=== PATIENT | male | born 1935 | race Caucasian/White ===

== ENCOUNTER 2020-06-27 01:48 | Observation (INO) | payer MEDICARE, BC ==
[2020-06-27] VITALS (19 sets, daily range): BP systolic 114–140; BP diastolic 64–92; PULSE 69–95; TEMP 97.5–98.3
[~2020-06-27] VITALS: Ht 170.2 cm; Wt 88.5 kg
--- NOTE | 2020-06-27 03:19 | NUR ---
Received report from Kang Mcleod RN, Lay.
--- NOTE | 2020-06-27 03:19 | NUR ---
Patient arrives to ICU room 8 via EMS stretcher. Patient is alert and oriented, and ambulates to ICU bed with standby assistance. Initial vitals within normal limits. Patient denies any pain or discomfort. He arrives with two 22g peripheral IVs; one to each AC. Heparin is infusing at 1000 units/hour to the left AC. Nitro is infusing at 2.5 mcg/min to the right AC. Patient is 97% on room air; denies feeling short of breath. PETER Aleman, notified of patient's arrival. Received orders to continue nitro and heparin drips. Patient's belongings include a pair of glasses, brown boots, street clothes, and a cell phone. He denies having a wallet, dentures, partials, plates, hearing aids, and any jewelry. Patient also has with him a small bottle of sublingual nitroglycerine, which is given to JACOB Antonio, at shift change, to give to pharmacy. No further needs noted at this time.
[2020-06-27] MEDS ORDERED: NITROSTAT0.4 MG/TAB SL (04:19)
[2020-06-27] MEDS ORDERED: ZYLOPRIM 300MG300 MG PO (04:20)
[2020-06-27] MEDS ORDERED: FLOMAX 0.40.4 MG/CAP PO (04:21)
[2020-06-27] MEDS ORDERED: LOPRESSOR 225 MG/TAB PO (04:22)
[2020-06-27] MEDS ORDERED: SYNTHROID 0.0.025 MG PO (04:26)
[2020-06-27 04:58] LABS: BASO % 0.3 % (0.0-2.0); EOS # 0.1 (0.0-0.7); EOS % 0.6 % (0-4.0); GRAN # 5.5 (1.4-6.5); GRAN % 58.2 % (42.2-75.2); HEMOGLOBIN 10.7 g/dl (13.5-18.0); LYMPH % 31.3 % (20.0-51.0); MEAN CELL VOLUME 103 fl (80.0-100.0); MEAN CORPUSCULAR HEMOGLOBIN 34 pg (27.0-31.0); MEAN CORPUSCULAR HGB CONC 33 g/dl (33.0-37.0); MEAN PLATELET VOLUME 10.1 fl (7.4-10.4); MONO # 0.9 (0.1-0.6); MONO % 9.3 % (1.7-9.3); PLATELET COUNT 182 K/mm3 (130-400); RED BLOOD COUNT 3.15 M/mm3 (4.20-5.60); REDCELL DISTRIBUTION WIDTH-CV 13.5 % (11.5-14.5)
[2020-06-27 05:01] LABS: HEMATOCRIT 32.4 % (42.0-52.0)
[2020-06-27 05:13] LABS: BILIRUBIN,TOTAL 0.6 mg/dL (0.0-1.0); CALCIUM 9.5 mg/dL (8.4-10.2); CHOLESTEROL RISK RATIO 4.6; CREATININE, serum 3.38 (0.66-1.25); MAGNESIUM 2.3 mg/dL (1.6-2.3); POTASSIUM 3.8 mmol/L (3.4-5.0); TOTAL PROTEIN 6.9 gm/dL (6.4-8.2)
[2020-06-27 05:15] LABS: INR 1.2 (0.8-3.0); PROTHROMBIN TIME 13.6 SECONDS (9.7-12.8)
[2020-06-27] MEDS ORDERED: NORVASC2.5 MG PO (05:17)
[2020-06-27 05:27] LABS: TROPONIN-I 0.967 ng/mL (0.000-0.035)
[2020-06-27 05:34] LABS: PARTIAL THROMBOPLASTIN TIME 133.3 SECONDS (26.0-37.0)
--- NOTE | 2020-06-27 07:30 | NUR ---
Report given to JACOB Antonio.
--- NOTE | 2020-06-27 07:42 | NUR ---
polytechnic registrar at bedside.
--- NOTE | 2020-06-27 08:05 | NUR ---
Notified Dr. Mead of consult on pt. requested to contacted Giuliana. Voicemail left with Giuliana and return phone number given. Attempted to contacted Dr. Monteiro for consult. Phone call dropped during call and unable to reach or leave voicemail with second call at this time.
--- NOTE | 2020-06-27 09:07 | NUR ---
RECEIVED REPORT FROM JACOB UMANA. ASSUMED CARE OF PT AT THIS TIME.
--- NOTE | 2020-06-27 09:15 | NUR ---
JACOB Giordano at bedside speaking with ptMaria Del Carmen
--- NOTE | 2020-06-27 09:51 | NUR ---
SW met with the patient to discuss discharge plan. The patient [place] north of [place] with his , Kristine (ph#[phone]). He reports independence with ADLs and has a walker available, if needed. The patient's PCP is Dr. Esau Irwin and he receives his medications from [facility]. He reports no difficulties obtaining his meds. The patient does not have a DPOA-HC in EMR, but he states that he thinks he may have one completed. He states that he does not know where it is at though. He would have designated his or daughter, Zeinab (ph#[phone]). The patient plans to return home with his upon discharge. SW attempted to contact the patient's to review d/c plan. SW left her a voicemail. SW then contacted and updated the patient's daughter, Zeinab. Zeinab reports no concerns with the patient returning home upon discharge. SW to follow as needed.
--- NOTE | 2020-06-27 11:30 | NUR ---
NOTIFIED DR. DOHERTY OF PT'S TROPONIN LEVEL OF 1.080.
--- NOTE | 2020-06-27 14:35 | NUR ---
CONTACTED DR. ROSALES OFFICE TO REQUEST PT PROCEDURE HISTORY AND PROGRESS NOTES. INFORMATION TO BE FAXED TO ICU.
--- NOTE | 2020-06-27 16:15 | NUR ---
PT TO REGULATORY COMPLIANCE MANAGER AT THIS TIME VIA CART WITH JACOB KIM.
--- NOTE | 2020-06-27 16:43 | NUR ---
SEE MERGE DOCUMENTATION FOR MEDICATION ADMINISTRATION TIMES AND INTRA/POST PROCEDURE SEDATION ASSESSMENTS.
[2020-06-27 16:56] LABS: HEMOGLOBIN 10.7 g/dl (13.5-18.0); MEAN CELL VOLUME 102 fl (80.0-100.0); MEAN CORPUSCULAR HEMOGLOBIN 35 pg (27.0-31.0); MEAN CORPUSCULAR HGB CONC 34 g/dl (33.0-37.0); MEAN PLATELET VOLUME 10.3 fl (7.4-10.4); PLATELET COUNT 182 K/mm3 (130-400); REDCELL DISTRIBUTION WIDTH-CV 13.6 % (11.5-14.5)
[2020-06-27 16:57] LABS: HEMATOCRIT 31.6 % (42.0-52.0)
[2020-06-27 17:08] LABS: CALCIUM 9.3 mg/dL (8.4-10.2); CREATININE, serum 3.04 (0.66-1.25); POTASSIUM 4.2 mmol/L (3.4-5.0)
[2020-06-27 17:09] LABS: INR 1.2 (0.8-3.0); PROTHROMBIN TIME 13.6 SECONDS (9.7-12.8)
[2020-06-27 17:12] LABS: PARTIAL THROMBOPLASTIN TIME 56.9 SECONDS (26.0-37.0)
--- NOTE | 2020-06-27 17:30 | NUR ---
PT RETURN FROM SIGNAL MAINTAINER. RECEIVED REPORT FROM JACOB KIM. VS WNL. HEPARIN CONTINUES TO RUN AT 7ML/HR, NITRO GTT AT 3ML/HR. PT ALERT/ORIENTED X3. PT REMAINS IN SUPINE POSITION. FEMORAL SHEATH IN PLACE TO RIGHT GROIN. DRESSING INTACT. NO ACTIVE BLEEDING NOTED. PRESSURE BAG AT 250MMHG. WILL CONTINUE TO MONITOR.
--- NOTE | 2020-06-27 18:15 | NUR ---
PT EXPRESSING CONCERN WITH TRANSFER TO [facility]. NOTIFIED DR. DOHERTY. DR. DOHERTY TO BEDSIDE TO SPEAK WITH PT.
--- NOTE | 2020-06-27 19:15 | NUR ---
Received report from JACOB Antonio. Patient resting quietly in bed. All vitals within normal limits. Patient denies any pain or discomfort. All pumps and lines verified at bedside. Right groin access site is clean, dry, and intact, soft, and without bruising or hematoma formation. All pulses palpable. No further needs noted at this time.
--- NOTE | 2020-06-27 20:48 | NUR ---
Report called to receiving nurseMary.
--- NOTE | 2020-06-27 22:42 | NUR ---
Patient departs for [facility] with EMS transport at this time. All patient belongings are sent with patient. Final vital stats within normal limits. Patient denies any pain or discomfort. No further needs noted.
== END 2020-06-27 22:42 | disposition critical access hospital (66) ==
LOC: ICU 01:48
PROVIDERS: Internal Medicine Cardiovascular Disease; Nurse Practitioner Family; ADMIT Hospitalist
DX: I25.110 Atherosclerotic heart disease of native coronary artery with unstable angina pectoris (principal); E78.5 Hyperlipidemia, unspecified; N40.0 Benign prostatic hyperplasia without lower urinary tract symptoms; E03.9 Hypothyroidism, unspecified; I12.9 Hypertensive chronic kidney disease with stage 1 through stage 4 chronic kidney disease, or unspecified chronic kidney disease; N18.4 Chronic kidney disease, stage 4 (severe); I25.2 Old myocardial infarction; D63.1 Anemia in chronic kidney disease; Z87.891 Personal history of nicotine dependence; I08.1 Rheumatic disorders of both mitral and tricuspid valves
CPT/HCPCS: 99223-AI; 99238; G0378; G0379; J1644; J1940; J2250; J3010; J7030; Q9967

== ENCOUNTER 2020-12-28 06:24 | Inpatient (IN) | payer MEDICARE, BC ==
[~2020-12-28] VITALS: Ht 170.2 cm; Wt 80.8 kg
[2020-12-28] VITALS (78 sets, daily range): BP systolic 104–117; BP diastolic 60–88; PULSE 72–93; TEMP 97.1; O2SAT 69–97
[~2020-12-28 06:24] MED LIST: FLOMAX 0.40.4 MG/CAP PO; LOPRESSOR 225 MG/TAB PO; NITROSTAT0.4 MG/TAB SL; NORVASC2.5 MG PO; SYNTHROID 0.0.025 MG PO; ZYLOPRIM 300MG300 MG PO
--- NOTE | 2020-12-28 09:15 | NUR ---
PATIENT ARRIVED VIA EMS. PATIENT C/O NAUSEA BUT REPORTS HIS CHEST PAIN IS BETTER AFTER GETTING IV FENTANYL & MORPHINE AT [facility]. PATIENT IS PALE. EMS REPORTED PATIENT WAS TRANSFERED ON NITRO GTT AT 5MCG/MIN, WAS HAVING CHEST PAIN & NAUSEA AT [facility], AND ELEVATED TROP. VITALS TAKEN ON ADMIT NOTED HYPOTENSION. ALL OTHER VSS. CALLED BY FINE DINING SERVER WITH NO ANSWER. AWAITING ORDERS.
--- NOTE | 2020-12-28 09:20 | NUR ---
ATTEMPTED X2 TO CALL BATTERY CONTAINER TESTER ALUMINUM REGUARDING PATIENT ADMITTED TO FLOOR ON NITRO GTT AND CRITICAL TROPONIN. NO ANSWER
--- NOTE | 2020-12-28 09:40 | NUR ---
CALLED AND DISCUSSED PATIENT STATUS UPDATE. PATIENT ARRIVED ON NITRO GTT AND WITH A REPORTED TROPONIN OF 1.442. WAS NOT AWARE OF THIS AND GAVE ORDERS TO TRANSFER PATIENT TO THE ICU. RELAY CHECKER NOTIFIED.
--- NOTE | 2020-12-28 10:00 | NUR ---
ICU PROVIDER NOTIFIED SURGICAL NURSE, ICU STAFFING ISSUES DOESN'T ALLOW FOR TRANSFER. ICU PROVIDER SAID HE IS CANCELING ICU TX. HOUSE NOTIFIED BUT DIDN'T ANSWER. NO FLOOR ORDERS AT THIS TIME. PATIENT STILL DOESN'T HAVE NITRO GTT INFUSING AND NO CARDIAC MONITORING IS INPLACE. NURSING TRYING TO GET ORDERS.
--- NOTE | 2020-12-28 10:06 | NUR ---
SECRET CODE EXPERT NOW ANSWERED, REPORTS ICU TRANSFER IS NOT CANCELED AND THEY ARE WORKING ON IT. NURSING ASKED FOR ORDERS FOR TELE TILL TRANSFER IS COMPLETED.
--- NOTE | 2020-12-28 10:25 | NUR ---
ICU NURSE AT BEDSIDE TO SET UP NITRO GTT, WHICH IS NOT STOCKING IN THE SURG/MED PYXIS. ICU NURSE TO BACK DOWN TO ICU TO GET NITRO GTT. LAST B/P IS 109/68. PATIENT STILL C/O SHARP PAINS IN HIS SHOULDERS THAT ARE TOLERABLE AND MILD NAUSEA. STILL WAITING FOR ICU BED
--- NOTE | 2020-12-28 11:15 | NUR ---
CALLED AND GAVE REPORT TO ICU NURSE. AWAITING A PATIENT TO TRANSFER OUT OF ICU BEFORE BRINGING PATIENT DOWN. BUSINESS FUNCTIONAL ANALYST TO CALL WHEN READY
--- NOTE | 2020-12-28 11:30 | NUR ---
AT BEDSIDE. PATIENT FOUND TO HAVE ST DEPRESSION. ATTEMPTED TO NOTIFY ICU NURSE, NO ANSWER
--- NOTE | 2020-12-28 11:55 | NUR ---
PATIENT NOW TRANSFERED TO ICU. & AT BEDSIDE AND DISCUSSING TRANSFER TO [facility]. ICU NURSES X2 MEET PATIENT IN ICU#6 AND TAKING OVER CARE. SEE NEW ORDERS.
[2020-12-28] MEDS ORDERED: LIPITOR 40MG TA40 MG PO (11:56)
[2020-12-28] MEDS ORDERED: COLACE 100100 MG/CAP PO (11:57)
[2020-12-28] MEDS ORDERED: ISOSORBIDE MON120 MG PO (11:57)
[2020-12-28] MEDS ORDERED: LASIX 20MG TABL20 MG PO (11:57)
[2020-12-28] MEDS ORDERED: PLAVIX 75MG TAB75 MG PO (11:57)
[2020-12-28] MEDS ORDERED: MIRALAX510G PO (11:58)
[2020-12-28] MEDS ORDERED: SYNTHROID0.125 MG/T PO (12:00)
--- NOTE | 2020-12-28 12:00 | NUR ---
Pt transferred from Surgical unit to ICU bed 6. Pt. alert and able to answer questions. Pt. oriented to his room. Medications and allergies reviewed. Plan for heparin drip to be started, this RN is awaiting lab to draw new labs to initiate heparin drip. Pt. agreeable with plan of care. Call light in reach.
[2020-12-28] MEDS ORDERED: TOPROL XL 50MG50 MG PO (12:01)
[2020-12-28] MEDS ORDERED: SENOKOT8.6 MG PO (12:02)
--- NOTE | 2020-12-28 12:57 | NUR ---
Dr. Mead in room with pt and his . Pt. speaking with Dr. Mead about his wishes and future plans for plan of care.
--- NOTE | 2020-12-28 15:42 | NUR ---
Plan for pt. to go back to the medical unit, pt. now on nitro paste. No nitro drip infusing. Pt. did not want any more pokes or lab work on IVs. The heparin drip was not initiated. RN Informatics Analyst Sheng notified, Sheng JAMES reports she will let Dr. Mead know.
--- NOTE | 2020-12-28 19:33 | NUR ---
Patient put on 5L O2 via OM. Patient made it clear that he would like to be put on comfort care. Dr. Mead was notified and the orders have been put in place. POC was discussed w/ patient's over the phone. Patient does not want his to visit. states she is unable to make it to [place], and would like for the patient to be transferred back to [facility]. was told that our hospice nurse, Aleyda Glass, will be in tomorrow to discuss further actions and to decide if this is a possibilty.
--- NOTE | 2020-12-28 21:54 | NUR ---
Contacted [facility] and spoke with Elbert. Patient is a candidate for tissue donation. He will contact Medical Floor in 45minutes to check and see how is coping before calling her. We are not to release body to home yet. [facility] Referral # [id number]
--- NOTE | 2020-12-28 21:55 | NUR ---
Patient used call light and call for nurse at shift start. Patient sitting up in bed. Patient states having a lot of pain and wants pain medication. PRN Roxanol given per JUL. Patient currently on oxymask 5L. Breathing labored. Extremities cool to touch. Pulses are weak but palpable. Tele called JACOB Flores and notified of patient's asystole. cell feed department supervisor notified. Verified patient HR and pulse with 2 RN. cell feed department supervisor notified Dr. Mead. Called patient's family and made family aware of patient's . Removed IV and removed Tele box. Post mortem care provided.
--- NOTE | 2020-12-29 02:26 | NUR ---
Patient's family came around 2300. This nurse verified home and phone number with the family. Patient's family checked patient's belongings and told this nurse that they are missing blue T-shirt in patient's belongings.
--- NOTE | 2020-12-29 02:28 | NUR ---
Joyce at [facility] called back stating she has been unable to contact family. Continue to ice patient. She will call when body can be released to home.
--- NOTE | 2020-12-29 03:00 | NUR ---
Joyce from [facility] called, stating she is still unable to reach family. [facility] states she contacted [facility] in [place] to come strip picker the patient. States they will cool the patient until [facility] can discuss donation with family, then patient will be taken to [facility] in [place].
--- NOTE | 2020-12-29 04:03 | NUR ---
Body released to [facility] in [place] at 03:50 am.
== END 2020-12-29 03:50 | disposition expired ==
LOC: MEDICAL 06:24 → ICU 09:40 → MEDICAL 14:30
PROVIDERS: ADMIT Internal Medicine Nephrology
DX: I21.4 Non-ST elevation (NSTEMI) myocardial infarction (principal); N18.5 Chronic kidney disease, stage 5; I12.0 Hypertensive chronic kidney disease with stage 5 chronic kidney disease or end stage renal disease; I44.7 Left bundle-branch block, unspecified; D63.1 Anemia in chronic kidney disease; N40.0 Benign prostatic hyperplasia without lower urinary tract symptoms; E78.5 Hyperlipidemia, unspecified; E03.9 Hypothyroidism, unspecified; Z20.822 Contact with and (suspected) exposure to COVID-19; E83.52 Hypercalcemia; Z87.442 Personal history of urinary calculi; Z87.898 Personal history of other specified conditions
CPT/HCPCS: J2270